=== PATIENT | female | born 1970 | race Caucasian/White ===

== ENCOUNTER 2020-05-12 21:12 | Emergency (ER) | payer BC ==
[2020-05-12] MEDS ORDERED: Acetaminophen 500 MG TAB ONE (21:56)
[2020-05-12] MEDS ORDERED: Morphine 1 ML ONE (21:56)
[2020-05-12] MEDS ORDERED: Lidocaine 1% (PF) 30 ML VIAL ONE (23:48)
[2020-05-12] MEDS ORDERED: Bupivacaine 0.25% HCL 30 ML VIAL ONE (23:48)
== END 2020-05-13 00:13 | disposition home or self-care (01) ==
LOC: CSHERS 21:12
DX: E11.41 Type 2 diabetes mellitus with diabetic mononeuropathy (principal); M62.830 Muscle spasm of back; Z79.52 Long term (current) use of systemic steroids
CPT/HCPCS: 20552; 93005; 96372; J2001; J2270; S0020

== ENCOUNTER 2023-04-21 10:31 | Outpatient (CLI) | payer BC | END 2023-04-21 10:32 | disposition home or self-care (01) | LOC: CSHRAD 10:31 | PROVIDERS: ATTEND Family Medicine Sports Medicine | DX: M25.561 Pain in right knee (principal); M25.562 Pain in left knee | CPT/HCPCS: 73565 ==